=== PATIENT | male | born 1945 | race Caucasian/White ===

== ENCOUNTER 2017-07-15 10:25 | Inpatient (IN) | payer OTHER ==
[~2017-07-15] VITALS: Ht 180.3 cm; Wt 100.2 kg
[~2017-07-15 10:25] MED LIST: ASPIRIN EC325 MG PO; ATORVASTATIN CA80 MG PO; BAYER ASPIRIN325 M1 PO; EFFIENT PO; EFFIENT10 MG PO; LISINOPRIL PO; LISINOPRIL20 MG PO; LISINOPRIL40 MG PO; LOPRESSOR25 MG PO; METOPROLOL PO; NICOTINE PATCH1 EAC2 TD; NITROSTAT0.4 MG SL; PLAVIX75 MG PO; SPIRIVA1 INHALATI IH; VENTOLIN HFA18 GM IH
[2017-07-15 12:28] LABS: HEMOGLOBIN 13.5 G/DL (12.5-16.6); MCH 27.8 PG (29.0-34.0); MCV 92.6 FL (86-99); PLATELET COUNT 178 K/uL (156-360); RBC DIS.WIDTH-CV 17.5 % (11.8-14.6); RBC DIS.WIDTH-SD 60.4 % (39-53); RED BLOOD COUNT 4.86 M/uL (4.00-5.50); WHITE BLOOD COUNT 8.9 K/uL (4.1-10.2)
[2017-07-15 12:36] LABS: INTER. NORMALIZED RATIO 1.1
[2017-07-15 12:39] LABS: PTT 32.5 SEC (25-37)
[2017-07-15 12:45] LABS: ALBUMIN 3.8 G/DL (3.2-4.8); CHLORIDE 100 MEQ/L (99-109); POTASSIUM 4.2 MEQ/L (3.7-5.4); SODIUM 141 MEQ/L (136-147); TOTAL BILIRUBIN 0.4 MG/DL (0.0-1.0)
[2017-07-15 12:51] LABS: ALKALINE PHOSPHATASE 94 IU/L (3-129); ALT (GPT) 8 IU/L (3-49); AST (GOT) 15 IU/L (2-34); CREATININE 0.7 MG/DL (0.6-1.3); GFR ESTIMATE (CALCULATED) > 59 mL/min/ (58.99-99999); GLUCOSE 94 mg/dL (70-99); TOTAL PROTEIN 6.6 G/DL (6.4-8.3); UREA NITROGEN (BUN) 18 mg/dL (9-23)
[2017-07-15 13:04] LABS: TROP-I INTERPRETATION NEGATIVE
[2017-07-15 13:43] LABS: BASE EXCESS 8.2 mEq/L (-3 to +3); BICARBONATE 39.4 mEq/L (22-26); CARBOXY HGB 12.6 % (0-5); COMMENTS - BLOOD GASES A+C+; DEVICE NC; METHEMOGLOBIN 0.6 % (0-1.5); O2 FLOW 4.5 L/MIN; PCO2 92 mm Hg (35-45); PO2 52 mm Hg (80-100); SITE RR; pH 7.24 (7.35-7.45)
[2017-07-15 15:46] LABS: BASE EXCESS 6.8 mEq/L (-3 to +3); BICARBONATE 40.4 mEq/L (22-26); METHEMOGLOBIN 0.6 % (0-1.5)
[2017-07-15 15:47] LABS: CARBOXY HGB 11.1 % (0-5); COMMENTS - BLOOD GASES A+C+; DEVICE 980 MASK VENT; FI02 40 %; MECHANICAL RATE 10 resp/min; MODE SIMV NIV; PCO2 116 mm Hg (35-45); PO2 66 mm Hg (80-100); SITE RR; TOTAL RESP RATE 16 resp/min; pH 7.15 (7.35-7.45)
[2017-07-15 15:48] LABS: PEEP 8 CM/H20; PRES. SUPPORT 14 CM/H2O; TIDAL VOLUME 450 ML
[2017-07-15] MEDS ORDERED: TOPROL XL50 MG PO (17:15)
[2017-07-15] MEDS ORDERED: NORVASC5 MG PO (17:15)
[2017-07-15 19:00] VITALS: BP 98/59
[2017-07-15 20:00] VITALS: BP 108/59
[2017-07-15 20:27] LABS: BICARBONATE 37.5 mEq/L (22-26); CARBOXY HGB 5.1 % (0-5); METHEMOGLOBIN 1.4 % (0-1.5); PO2 62 mm Hg (80-100)
[2017-07-15 20:28] LABS: DEVICE 980; FI02 100 %; MECHANICAL RATE 20 resp/min; MODE AC; PCO2 62 mm Hg (35-45); PEEP 10 CM/H20; SITE RR; TIDAL VOLUME 500 ML; TOTAL RESP RATE 20 resp/min; pH 7.39 (7.35-7.45)
[2017-07-15 21:00] VITALS: BP 99/66
[2017-07-15 22:00] VITALS: BP 107/73
[2017-07-15 23:00] VITALS: BP 133/87
[2017-07-16] VITALS (24 sets, daily range): BP systolic 102–132; BP diastolic 61–75
[2017-07-16 05:12] LABS: HEMATOCRIT 45.1 % (38.0-50.0); HEMOGLOBIN 14.1 G/DL (12.5-16.6); MCH 27.8 PG (29.0-34.0); MCHC 31.3 G/DL (30.0-36.0); MCV 88.8 FL (86-99); PLATELET COUNT 179 K/uL (156-360); RBC DIS.WIDTH-CV 16.9 % (11.8-14.6); RBC DIS.WIDTH-SD 55.2 % (39-53); RED BLOOD COUNT 5.08 M/uL (4.00-5.50); WHITE BLOOD COUNT 7.7 K/uL (4.1-10.2)
[2017-07-16 06:05] LABS: CHLORIDE 97 MEQ/L (99-109); CREATININE 0.9 MG/DL (0.6-1.3); GFR ESTIMATE (CALCULATED) > 59 mL/min/ (58.99-99999); POTASSIUM 4.2 MEQ/L (3.7-5.4); SODIUM 140 MEQ/L (136-147); UREA NITROGEN (BUN) 18 mg/dL (9-23)
[2017-07-16 06:08] LABS: GLUCOSE 173 mg/dL (70-99)
[2017-07-16 07:28] LABS: BASE EXCESS 9.3 mEq/L (-3 to +3); BICARBONATE 35.3 mEq/L (22-26); CARBOXY HGB 2.2 % (0-5); COMMENTS - BLOOD GASES A+C+; DEVICE 980; FI02 70 %; MECHANICAL RATE 20 resp/min; METHEMOGLOBIN 1.5 % (0-1.5); MODE AC; PCO2 52 mm Hg (35-45); PEEP 12 CM/H20; PO2 62 mm Hg (80-100); SITE RR; TIDAL VOLUME 500 ML; TOTAL RESP RATE 20 resp/min; pH 7.44 (7.35-7.45)
[2017-07-17] VITALS (23 sets, daily range): BP systolic 94–129; BP diastolic 53–78
[2017-07-17 06:02] LABS: BASOPHIL (%) 0.1 % (0-1); EOSINOPHIL (%) 0 % (0-5); HEMATOCRIT 43.4 % (38.0-50.0); HEMOGLOBIN 13.5 G/DL (12.5-16.6); IMMATURE GRANULOCYTE (%) 0.7 % (0.0-0.7); LYMPHOCYTE (%) 3.2 % (15-42); LYMPHOCYTE COUNT 0.5 K/uL (1.0-2.8); MCH 26.8 PG (29.0-34.0); MCHC 31.1 G/DL (30.0-36.0); MCV 86.3 FL (86-99); MONOCYTE (%) 1.8 % (3-12); MONOCYTE COUNT 0.3 K/uL (0-0.8); NEUTROPHIL (%) 94.2 % (45-76); NEUTROPHIL COUNT 15.8 K/uL (1.8-6.4); PLATELET COUNT 195 K/uL (156-360); RBC DIS.WIDTH-SD 53.7 % (39-53); RED BLOOD COUNT 5.03 M/uL (4.00-5.50); WHITE BLOOD COUNT 16.7 K/uL (4.1-10.2)
[2017-07-17 06:20] LABS: CHLORIDE 96 MEQ/L (99-109); GFR ESTIMATE (CALCULATED) > 59 mL/min/ (58.99-99999); GLUCOSE 143 mg/dL (70-99); MAGNESIUM 2.2 mg/dl (1.3-2.7); POTASSIUM 3.9 MEQ/L (3.7-5.4); SODIUM 136 MEQ/L (136-147); UREA NITROGEN (BUN) 28 mg/dL (9-23)
[2017-07-17 08:30] LABS: BASE EXCESS 9.4 mEq/L (-3 to +3); BICARBONATE 34.8 mEq/L (22-26); CARBOXY HGB 1.9 % (0-5); METHEMOGLOBIN 1.5 % (0-1.5); PCO2 49 mm Hg (35-45); pH 7.46 (7.35-7.45)
[2017-07-17 08:31] LABS: COMMENTS - BLOOD GASES C+; DEVICE VENT; FI02 70 %; MECHANICAL RATE 20 resp/min; MODE AC; PEEP 12 CM/H20; PO2 76 mm Hg (80-100); SITE RR; TIDAL VOLUME 500 ML; TOTAL RESP RATE 20 resp/min
[2017-07-18] VITALS (24 sets, daily range): BP systolic 103–144; BP diastolic 57–90
[2017-07-18 12:44] LABS: BASE EXCESS 8.6 mEq/L (-3 to +3); BICARBONATE 34.1 mEq/L (22-26); CARBOXY HGB 1.9 % (0-5); METHEMOGLOBIN 1.5 % (0-1.5); PCO2 49 mm Hg (35-45); PO2 61 mm Hg (80-100); pH 7.45 (7.35-7.45)
[2017-07-18 12:46] LABS: COMMENTS - BLOOD GASES C+; DEVICE VENT; FI02 70 %; MODE AC; SITE RR
[2017-07-18 12:47] LABS: MECHANICAL RATE 20 resp/min; PEEP 12 CM/H20; TIDAL VOLUME 500 ML; TOTAL RESP RATE 20 resp/min
[2017-07-18 13:14] LABS: HEMOGLOBIN 13.4 G/DL (12.5-16.6); MCHC 31.9 G/DL (30.0-36.0); MCV 87.9 FL (86-99); PLATELET COUNT 159 K/uL (156-360); RBC DIS.WIDTH-CV 17.3 % (11.8-14.6); RBC DIS.WIDTH-SD 55.8 % (39-53); RED BLOOD COUNT 4.78 M/uL (4.00-5.50); WHITE BLOOD COUNT 15.9 K/uL (4.1-10.2)
[2017-07-18 13:37] LABS: CHLORIDE 99 MEQ/L (99-109); CREATININE 0.7 MG/DL (0.6-1.3); GFR ESTIMATE (CALCULATED) > 59 mL/min/ (58.99-99999); GLUCOSE 136 mg/dL (70-99); MAGNESIUM 2.3 mg/dl (1.3-2.7); PHOSPHORUS 3.6 mg/dL (2.5-4.9); POTASSIUM 4.4 MEQ/L (3.7-5.4); SODIUM 136 MEQ/L (136-147); UREA NITROGEN (BUN) 32 mg/dL (9-23)
[2017-07-19] VITALS (24 sets, daily range): BP systolic 104–164; BP diastolic 55–96
[2017-07-19 12:20] LABS: BASOPHIL (%) 0.1 % (0-1); EOSINOPHIL (%) 0 % (0-5); HEMATOCRIT 43.6 % (38.0-50.0); HEMOGLOBIN 13.8 G/DL (12.5-16.6); IMMATURE GRANULOCYTE (%) 0.4 % (0.0-0.7); LYMPHOCYTE (%) 2.8 % (15-42); LYMPHOCYTE COUNT 0.4 K/uL (1.0-2.8); MCH 27.6 PG (29.0-34.0); MCHC 31.7 G/DL (30.0-36.0); MCV 87.2 FL (86-99); MONOCYTE (%) 2.7 % (3-12); MONOCYTE COUNT 0.4 K/uL (0-0.8); NEUTROPHIL COUNT 12.1 K/uL (1.8-6.4); PLATELET COUNT 154 K/uL (156-360); RBC DIS.WIDTH-CV 17.2 % (11.8-14.6); RBC DIS.WIDTH-SD 55.5 % (39-53); WHITE BLOOD COUNT 12.9 K/uL (4.1-10.2)
[2017-07-19 12:42] LABS: ALBUMIN 2.9 G/DL (3.2-4.8); ALT (GPT) 8 IU/L (3-49); AST (GOT) 12 IU/L (2-34); CHLORIDE 99 MEQ/L (99-109); CREATININE 0.8 MG/DL (0.6-1.3); GFR ESTIMATE (CALCULATED) > 59 mL/min/ (58.99-99999); GLUCOSE 117 mg/dL (70-99); MAGNESIUM 2.4 mg/dl (1.3-2.7); PHOSPHORUS 3.7 mg/dL (2.5-4.9); POTASSIUM 4.2 MEQ/L (3.7-5.4); SODIUM 139 MEQ/L (136-147); TOTAL BILIRUBIN 0.4 MG/DL (0.0-1.0); UREA NITROGEN (BUN) 33 mg/dL (9-23)
[2017-07-19 12:43] LABS: ALKALINE PHOSPHATASE 59 IU/L (3-129); TOTAL PROTEIN 5.2 G/DL (6.4-8.3)
[2017-07-20] VITALS (18 sets, daily range): BP systolic 115–167; BP diastolic 62–94
[2017-07-20 06:18] LABS: BASOPHIL (%) 0.1 % (0-1); EOSINOPHIL (%) 0 % (0-5); HEMATOCRIT 43.8 % (38.0-50.0); HEMOGLOBIN 13.3 G/DL (12.5-16.6); IMMATURE GRANULOCYTE (%) 0.8 % (0.0-0.7); LYMPHOCYTE (%) 2.7 % (15-42); LYMPHOCYTE COUNT 0.3 K/uL (1.0-2.8); MCH 26.7 PG (29.0-34.0); MCHC 30.4 G/DL (30.0-36.0); MCV 87.8 FL (86-99); MONOCYTE (%) 2.5 % (3-12); MONOCYTE COUNT 0.3 K/uL (0-0.8); NEUTROPHIL (%) 93.9 % (45-76); PLATELET COUNT 161 K/uL (156-360); RBC DIS.WIDTH-CV 16.7 % (11.8-14.6); RBC DIS.WIDTH-SD 53.5 % (39-53); RED BLOOD COUNT 4.99 M/uL (4.00-5.50); WHITE BLOOD COUNT 11.7 K/uL (4.1-10.2)
[2017-07-20 06:34] LABS: CHLORIDE 99 MEQ/L (99-109); CREATININE 0.9 MG/DL (0.6-1.3); GFR ESTIMATE (CALCULATED) > 59 mL/min/ (58.99-99999); GLUCOSE 129 mg/dL (70-99); MAGNESIUM 2.6 mg/dl (1.3-2.7); PHOSPHORUS 4.4 mg/dL (2.5-4.9); POTASSIUM 4.3 MEQ/L (3.7-5.4); SODIUM 140 MEQ/L (136-147); TRIGLYCERIDES 138 MG/DL (Normal: <150); UREA NITROGEN (BUN) 39 mg/dL (9-23)
[2017-07-21] VITALS (22 sets, daily range): BP systolic 127–169; BP diastolic 73–101
[2017-07-21 09:14] LABS: HEMATOCRIT 46.9 % (38.0-50.0); HEMOGLOBIN 14.5 G/DL (12.5-16.6); MCH 26.8 PG (29.0-34.0); MCHC 30.9 G/DL (30.0-36.0); MCV 86.7 FL (86-99); PLATELET COUNT 149 K/uL (156-360); RBC DIS.WIDTH-CV 16.4 % (11.8-14.6); RBC DIS.WIDTH-SD 52.6 % (39-53); RED BLOOD COUNT 5.41 M/uL (4.00-5.50); WHITE BLOOD COUNT 11.4 K/uL (4.1-10.2)
[2017-07-21 09:46] LABS: CHLORIDE 99 MEQ/L (99-109); CREATININE 0.9 MG/DL (0.6-1.3); GFR ESTIMATE (CALCULATED) > 59 mL/min/ (58.99-99999); POTASSIUM 3.7 MEQ/L (3.7-5.4); SODIUM 143 MEQ/L (136-147); UREA NITROGEN (BUN) 39 mg/dL (9-23)
[2017-07-21 09:51] LABS: GLUCOSE 76 mg/dL (70-99)
[2017-07-21 11:41] LABS: CARBOXY HGB 1.8 % (0-5); METHEMOGLOBIN 1.6 % (0-1.5); PO2 54 mm Hg (80-100); pH 7.48 (7.35-7.45)
[2017-07-21 11:42] LABS: BICARBONATE 41.7 mEq/L (22-26); COMMENTS - BLOOD GASES C+; DEVICE NCH; O2 FLOW 13 L/MIN; PCO2 56 mm Hg (35-45); SITE LR; TOTAL RESP RATE 20 resp/min
[2017-07-22] VITALS (20 sets, daily range): BP systolic 120–174; BP diastolic 76–129
[2017-07-22 15:10] LABS: BASOPHIL (%) 0.2 % (0-1); EOSINOPHIL (%) 0 % (0-5); HEMATOCRIT 52.6 % (38.0-50.0); HEMOGLOBIN 16.6 G/DL (12.5-16.6); IMMATURE GRANULOCYTE (%) 0.6 % (0.0-0.7); LYMPHOCYTE COUNT 0.4 K/uL (1.0-2.8); MCH 26.7 PG (29.0-34.0); MCHC 31.6 G/DL (30.0-36.0); MCV 84.7 FL (86-99); MONOCYTE (%) 3.2 % (3-12); MONOCYTE COUNT 0.4 K/uL (0-0.8); NEUTROPHIL COUNT 12.6 K/uL (1.8-6.4); PLATELET COUNT 189 K/uL (156-360); RBC DIS.WIDTH-CV 16.1 % (11.8-14.6); RBC DIS.WIDTH-SD 49.3 % (39-53); RED BLOOD COUNT 6.21 M/uL (4.00-5.50); WHITE BLOOD COUNT 13.5 K/uL (4.1-10.2)
[2017-07-22 15:25] LABS: ALBUMIN 3.8 G/DL (3.2-4.8); CHLORIDE 96 MEQ/L (99-109); MAGNESIUM 2.5 mg/dl (1.3-2.7); POTASSIUM 3.7 MEQ/L (3.7-5.4); SODIUM 139 MEQ/L (136-147)
[2017-07-22 15:43] LABS: ALKALINE PHOSPHATASE 69 IU/L (3-129); ALT (GPT) 16 IU/L (3-49); AST (GOT) 21 IU/L (2-34); CREATININE 0.9 MG/DL (0.6-1.3); GFR ESTIMATE (CALCULATED) > 59 mL/min/ (58.99-99999); GLUCOSE 183 mg/dL (70-99); PHOSPHORUS 3.8 mg/dL (2.5-4.9); TOTAL PROTEIN 7.1 G/DL (6.4-8.3); UREA NITROGEN (BUN) 37 mg/dL (9-23)
[2017-07-23] VITALS (20 sets, daily range): BP systolic 94–139; BP diastolic 52–89
[2017-07-23 06:51] LABS: BASOPHIL (%) 0.1 % (0-1); EOSINOPHIL (%) 0.1 % (0-5); HEMATOCRIT 48.3 % (38.0-50.0); HEMOGLOBIN 15.2 G/DL (12.5-16.6); IMMATURE GRANULOCYTE (%) 0.6 % (0.0-0.7); LYMPHOCYTE (%) 8.9 % (15-42); LYMPHOCYTE COUNT 1.3 K/uL (1.0-2.8); MCH 26.8 PG (29.0-34.0); MCHC 31.5 G/DL (30.0-36.0); MONOCYTE (%) 10.6 % (3-12); MONOCYTE COUNT 1.5 K/uL (0-0.8); NEUTROPHIL (%) 79.7 % (45-76); NEUTROPHIL COUNT 11.6 K/uL (1.8-6.4); PLATELET COUNT 176 K/uL (156-360); RBC DIS.WIDTH-CV 15.9 % (11.8-14.6); RBC DIS.WIDTH-SD 49.9 % (39-53); RED BLOOD COUNT 5.68 M/uL (4.00-5.50); WHITE BLOOD COUNT 14.6 K/uL (4.1-10.2)
[2017-07-23 07:25] LABS: ALBUMIN 3.4 G/DL (3.2-4.8); ALKALINE PHOSPHATASE 59 IU/L (3-129); ALT (GPT) 17 IU/L (3-49); AST (GOT) 20 IU/L (2-34); CHLORIDE 98 MEQ/L (99-109); CREATININE 0.8 MG/DL (0.6-1.3); GFR ESTIMATE (CALCULATED) > 59 mL/min/ (58.99-99999); GLUCOSE 97 mg/dL (70-99); MAGNESIUM 2.1 mg/dl (1.3-2.7); PHOSPHORUS 3.8 mg/dL (2.5-4.9); POTASSIUM 3.3 MEQ/L (3.7-5.4); SODIUM 142 MEQ/L (136-147); TOTAL BILIRUBIN 0.8 MG/DL (0.0-1.0); UREA NITROGEN (BUN) 36 mg/dL (9-23)
[2017-07-23 07:26] LABS: TOTAL PROTEIN 5.9 G/DL (6.4-8.3)
[2017-07-24 05:04] VITALS: BP 157/71
[2017-07-24 05:07] LABS: BASOPHIL (%) 0.1 % (0-1); EOSINOPHIL (%) 0 % (0-5); HEMATOCRIT 50.3 % (38.0-50.0); HEMOGLOBIN 15.7 G/DL (12.5-16.6); IMMATURE GRANULOCYTE (%) 0.7 % (0.0-0.7); LYMPHOCYTE (%) 6.3 % (15-42); LYMPHOCYTE COUNT 0.8 K/uL (1.0-2.8); MCH 27.3 PG (29.0-34.0); MCHC 31.2 G/DL (30.0-36.0); MCV 87.3 FL (86-99); MONOCYTE (%) 3.9 % (3-12); MONOCYTE COUNT 0.5 K/uL (0-0.8); NEUTROPHIL COUNT 10.6 K/uL (1.8-6.4); PLATELET COUNT 169 K/uL (156-360); RBC DIS.WIDTH-SD 51.1 % (39-53); RED BLOOD COUNT 5.76 M/uL (4.00-5.50); WHITE BLOOD COUNT 11.9 K/uL (4.1-10.2)
[2017-07-24 05:36] LABS: CHLORIDE 97 MEQ/L (99-109); CREATININE 0.9 MG/DL (0.6-1.3); GFR ESTIMATE (CALCULATED) > 59 mL/min/ (58.99-99999); GLUCOSE 123 mg/dL (70-99); SODIUM 140 MEQ/L (136-147); UREA NITROGEN (BUN) 42 mg/dL (9-23)
[2017-07-24 05:37] LABS: ALBUMIN 3.6 G/DL (3.2-4.8); ALKALINE PHOSPHATASE 66 IU/L (3-129); ALT (GPT) 20 IU/L (3-49); AST (GOT) 20 IU/L (2-34); CHLORIDE 98 MEQ/L (99-109); GFR ESTIMATE (CALCULATED) > 59 mL/min/ (58.99-99999); GLUCOSE 124 mg/dL (70-99); MAGNESIUM 2.4 mg/dl (1.3-2.7); PHOSPHORUS 5.3 mg/dL (2.5-4.9); POTASSIUM 4.2 MEQ/L (3.7-5.4); POTASSIUM 4.3 MEQ/L (3.7-5.4); SODIUM 139 MEQ/L (136-147); TOTAL BILIRUBIN 0.8 MG/DL (0.0-1.0); TOTAL PROTEIN 6.2 G/DL (6.4-8.3); UREA NITROGEN (BUN) 40 mg/dL (9-23)
[2017-07-24 08:31] VITALS: BP 123/71
[2017-07-24 10:36] VITALS: BP 125/71
[2017-07-24 16:21] VITALS: BP 119/77
[2017-07-24 19:24] VITALS: BP 143/86
[2017-07-24 23:34] VITALS: BP 131/66
[2017-07-25 04:14] VITALS: BP 105/55
[2017-07-25 05:44] LABS: BASOPHIL (%) 0.1 % (0-1); EOSINOPHIL (%) 0.3 % (0-5); HEMATOCRIT 50.3 % (38.0-50.0); HEMOGLOBIN 15.4 G/DL (12.5-16.6); IMMATURE GRANULOCYTE (%) 0.6 % (0.0-0.7); LYMPHOCYTE (%) 15.3 % (15-42); LYMPHOCYTE COUNT 2.1 K/uL (1.0-2.8); MCH 26.4 PG (29.0-34.0); MCHC 30.6 G/DL (30.0-36.0); MCV 86.3 FL (86-99); MONOCYTE (%) 7.3 % (3-12); NEUTROPHIL (%) 76.4 % (45-76); NEUTROPHIL COUNT 10.6 K/uL (1.8-6.4); PLATELET COUNT 201 K/uL (156-360); RBC DIS.WIDTH-CV 15.6 % (11.8-14.6); RBC DIS.WIDTH-SD 48.8 % (39-53); RED BLOOD COUNT 5.83 M/uL (4.00-5.50); WHITE BLOOD COUNT 13.9 K/uL (4.1-10.2)
[2017-07-25 06:34] LABS: ALBUMIN 3.6 G/DL (3.2-4.8); ALKALINE PHOSPHATASE 68 IU/L (3-129); ALT (GPT) 24 IU/L (3-49); AST (GOT) 19 IU/L (2-34); CHLORIDE 99 MEQ/L (99-109); CREATININE 0.9 MG/DL (0.6-1.3); GFR ESTIMATE (CALCULATED) > 59 mL/min/ (58.99-99999); MAGNESIUM 2.2 mg/dl (1.3-2.7); PHOSPHORUS 4.6 mg/dL (2.5-4.9); POTASSIUM 4.2 MEQ/L (3.7-5.4); SODIUM 141 MEQ/L (136-147); TOTAL BILIRUBIN 0.9 MG/DL (0.0-1.0); TOTAL PROTEIN 5.9 G/DL (6.4-8.3); UREA NITROGEN (BUN) 42 mg/dL (9-23)
[2017-07-25 06:35] LABS: GLUCOSE 84 mg/dL (70-99)
[2017-07-25 06:54] VITALS: BP 124/58
[2017-07-25 10:37] VITALS: BP 92/62
[2017-07-25 15:49] VITALS: BP 130/90
[2017-07-25 20:54] VITALS: BP 130/77
[2017-07-25 23:27] VITALS: BP 122/76
[2017-07-26 04:18] VITALS: BP 136/84
[2017-07-26 04:38] LABS: BASOPHIL (%) 0.1 % (0-1); EOSINOPHIL (%) 1.5 % (0-5); EOSINOPHIL COUNT 0.2 K/uL (0-0.3); HEMATOCRIT 51.8 % (38.0-50.0); HEMOGLOBIN 16.2 G/DL (12.5-16.6); IMMATURE GRANULOCYTE (%) 0.6 % (0.0-0.7); LYMPHOCYTE (%) 18.3 % (15-42); LYMPHOCYTE COUNT 2.5 K/uL (1.0-2.8); MCH 27.2 PG (29.0-34.0); MCHC 31.3 G/DL (30.0-36.0); MCV 87.1 FL (86-99); MONOCYTE (%) 6.6 % (3-12); MONOCYTE COUNT 0.9 K/uL (0-0.8); NEUTROPHIL (%) 72.9 % (45-76); NEUTROPHIL COUNT 9.9 K/uL (1.8-6.4); PLATELET COUNT 195 K/uL (156-360); RBC DIS.WIDTH-CV 15.7 % (11.8-14.6); RBC DIS.WIDTH-SD 50.2 % (39-53); RED BLOOD COUNT 5.95 M/uL (4.00-5.50); WHITE BLOOD COUNT 13.6 K/uL (4.1-10.2)
[2017-07-26 05:02] LABS: ALBUMIN 3.8 g/dL (3.2-4.8); CHLORIDE 98 mEq/L (99-109); POTASSIUM 4.3 mEq/L (3.7-5.4); SODIUM 139 mEq/L (136-147)
[2017-07-26 05:03] LABS: MAGNESIUM 2.4 mg/dL (1.3-2.7)
[2017-07-26 05:05] LABS: GLUCOSE 86 mg/dL (70-99); TOTAL PROTEIN 6.3 g/dL (6.4-8.3)
[2017-07-26 05:06] LABS: TOTAL BILIRUBIN 0.9 mg/dL (0.0-1.0)
[2017-07-26 05:08] LABS: ALKALINE PHOSPHATASE 85 IU/L (3-129); GFR ESTIMATE (CALCULATED) > 59 mL/min/ (58.99-99999); PHOSPHORUS 4.5 mg/dL (2.5-4.9)
[2017-07-26 05:09] LABS: UREA NITROGEN (BUN) 43 mg/dL (9-23)
[2017-07-26 05:10] LABS: AST (GOT) 23 IU/L (2-34)
[2017-07-26 05:11] LABS: ALT (GPT) 35 IU/L (3-49)
[2017-07-26 07:46] VITALS: BP 122/63
[2017-07-26 11:46] VITALS: BP 117/63
[2017-07-26] MEDS ORDERED: ADVAIR 250/501 DISK IH (14:48)
[2017-07-26] MEDS ORDERED: CEFTIN500 MG PO (14:48)
[2017-07-26] MEDS ORDERED: FLORASTOR250 MG PO (14:49)
[2017-07-26] MEDS ORDERED: PREDNISONE20 MG PO (14:49)
[2017-07-26] MEDS ORDERED: LASIX40 MG PO (14:50)
[2017-07-26] MEDS ORDERED: QUETIAPINE FUMA25 MG PO (14:53)
[2017-07-26] MEDS ORDERED: MUCINEX600 MG PO (14:53)
[2017-07-26] MEDS ORDERED: NOVOLOG 10100 UNITS/ SC (14:53)
[2017-07-26] MEDS ORDERED: NICOTINE PATCH1 EAC2 TD (14:53)
[2017-07-26] MEDS ORDERED: ATORVASTATIN CA80 MG PO (14:54)
[2017-07-26] MEDS ORDERED: LOSARTAN POTASS50 MG PO (14:54)
[2017-07-26] MEDS ORDERED: EFFIENT10 MG PO (14:54)
[2017-07-26] MEDS ORDERED: LOPRESSOR50 MG PO (14:54)
[2017-07-26] MEDS ORDERED: AMLODIPINE BESYL5 MG PO (14:54)
[2017-07-26 15:55] VITALS: BP 137/74
== END 2017-07-26 16:27 | DRG 207 ==
LOC: EME 10:25 → EDOF 16:03 → 4WEST 16:03 → 4EAST 16:03 → ENRESERV 16:06 → 4WEST 17:55 → ENRESERV 07-23 15:37 → 4EAST 07-23 22:52
PROVIDERS: Internal Medicine; Internal Medicine Critical Care Medicine; Nurse Practitioner Family; Obstetrics & Gynecology; Specialist
PROC: 0BH17EZ Insertion of Endotracheal Airway into Trachea, Via Natural or Artificial Opening (ICD-10-PCS; principal; 2017-07-15)
PROC: 5A1955Z Respiratory Ventilation, Greater than 96 Consecutive Hours (ICD-10-PCS; 2017-07-15)
DX: J44.1 Chronic obstructive pulmonary disease with (acute) exacerbation (principal); R09.02 Hypoxemia; J96.02 Acute respiratory failure with hypercapnia; J18.9 Pneumonia, unspecified organism; J96.01 Acute respiratory failure with hypoxia; I25.10 Atherosclerotic heart disease of native coronary artery without angina pectoris; E66.9 Obesity, unspecified; E78.5 Hyperlipidemia, unspecified; J44.0 Chronic obstructive pulmonary disease with (acute) lower respiratory infection; I10 Essential (primary) hypertension; F17.200 Nicotine dependence, unspecified, uncomplicated; R41.82 Altered mental status, unspecified; R60.0 Localized edema; E11.65 Type 2 diabetes mellitus with hyperglycemia; Z95.5 Presence of coronary angioplasty implant and graft; Z82.49 Family history of ischemic heart disease and other diseases of the circulatory system; Z68.34 Body mass index [BMI] 34.0-34.9, adult; I25.2 Old myocardial infarction; J20.9 Acute bronchitis, unspecified; G47.33 Obstructive sleep apnea (adult) (pediatric); R79.1 Abnormal coagulation profile; I45.81 Long QT syndrome; F39 Unspecified mood [affective] disorder; T45.515A Adverse effect of anticoagulants, initial encounter; E87.70 Fluid overload, unspecified; E87.2 Acidosis; T38.0X5A Adverse effect of glucocorticoids and synthetic analogues, initial encounter
CPT/HCPCS: 36600; 70450; 71045; 71275; 80048; 80048 91; 80053; 82803; 82948; 83735; 83880; 84100; 84478; 84484; 85025; 85027; 85379; 85610; 85730; 87070; 87077; 87185; 87205; 87502; 87641; 93005; 93306; 93970; 94002; 94003; 94010; 94640; 94640 76; 94660; 94667; 94668; 94760; 94799; 97530 GO; 97530 GP; 99202; 99281; 99285; J0456; J0696; J1630; J1650; J1815; J1940; J2543; J2704; J2765; J2920; J2930; J3010; J7050; J7120; J7512; S0028